=== PATIENT | male | born 1965 | race Caucasian/White ===

== ENCOUNTER 2024-03-20 04:52 | Emergency (ER) | payer BC, SELFPAY ==
[2024-03-20 04:54] VITALS: BP 140/77
--- NOTE | 2024-03-20 05:42 | ED.MUSCINJ ---
Addendum entered and electronically signed by Mercy Irizarry NP 03/20/24 08:34:
Pt notified of minimal right lung pneumothorax. He will f/u w PCP for repeat CXR in a week, Return instructions discusses, states 'I've had a collapsed lung before, I know what to do.'
Original Note:
HPI-Injury
General
Chief Complaint: Musculo-Skeletal Complaint
Source: patient
Exam Limitations: none
Time Seen by Provider: 03/20/24 05:31
Nursing documentation reviewed up to this point in time: agreed with
History of Present Illness-Injury
Initial Injury comments:
Patient presents today w/ R rib pain x 1 day. Reports pain started yesterday after fall onto R side while playing soccer. He did not notice pain immediately but after game finished. Reports he did not hear any sounds at time of injury but noticed
clicking last night. Pain is present on lateral R ribcage and radiates to back. Reports pain is 2/10 currently but 9/10 w/ movement. States he is unable to lay on R side or breath deeply due to pain. Denies any bruising or swelling. Denies
hemoptysis, cough, or SOB. Deies any hx of chest injuries or lung disorders.
Past History
Past History
ED Past Medical History: None
ED Past Surgical History: Orthopedic
Social History
Tobacco: Non-smoker
Personal:
Living: with family
Employment: Employed
Review of Systems
Review of Systems
Constitutional: Denies fever, fatigue or chills
Respiratory: Denies cough, hemoptysis or trouble breathing
Cardiac: Reports chest pain
ABD/GI: Reports no symptoms
: Reports no symptoms
Neurological: Denies dizzy, headache or weakness
Phy Exam
General Physical Exam
General Presentation: well appearing and no apparent distress
General age: appears stated age
General Habitus: normal
General Mental: alert
Cardiovascular Exam
Cardiovascular Exam: regular rate/rhythm, no edema, no gallop and no murmur
Pulmonary Exam
Pulmonary Exam: lungs clear, no respiratory distress, no rales, no crackles, no rhonchi and no wheezing
Musculoskeletal Exam
Musculoskeletal Exam: other (no tenderness to palpation of R ribs. No bruising or swelling. )
Injury Course
Orders/Labs/Results
Orders:
Orders
03/20/24 05:01
CR Ribs-right 3 Vw W/pa Chest* Urgent
Comment:
Reason For Exam: fall
03/20/24 05:48
Incentive Spirometry [Rx Incentive Spirometry] [RESP] Urgent
Frequency: q1h while awake
MDM/Problems Addressed
Differential Diagnosis Includes:
rib fx, costochondritis
*Critical Care Note
Total Time (30-74mins, 75-104mins- exclusive of procedures): Not Applicable
ED Attending Note
-
Portions of this chart may have been created with voice recognition software.� Occasional wrong word or��sound alike� substitutions may have occurred due to the inherent limitations of voice recognition software.
Discharge Plan
Departure
Patient Disposition: Home (Routine Discharge)
Date of Disposition: 03/20/24
Time of Disposition: 06:15
Patient with high blood pressure during this ER visit?: Yes
Discharge Problem:
Closed rib fracture
Instructions: How to Use an Incentive Spirometer, Rib Fracture or Bruised Rib ED, BLOOD PRESSURE
Prescriptions:
New
diclofenac sodium 75 mg tablet,delayed release (DR/EC)
75 mg PO BID Qty: 10 0RF
No Action
No Current Medications
metronidazole 500 MG tablet
500 mg PO TID Qty: 30 0RF
hydrocodone-acetaminophen [Vicodin] 1 EACH tablet
1 ea PO Q6HPRN PRN (Reason: pain) Qty: 10 0RF
levofloxacin 500 MG tablet
500 mg PO DAILY 10 Days 0RF
Referrals:
[place], [employer] [Family Provider] -
Activity Restrictions/Additional Instructions:
It was a pleasure meeting you and taking part in your care. We hope for your continued healing and wellness.
Please read discharge instructions in their entirety. However, they are for general education and may not describe your exact diagnosis at discharge. Information on your ER visit and medical conditions were discussed with you along with appropriate
follow up information...
If indicated, please take your medications as instructed and indicated on discharge paperwork.
Please schedule a follow up appointment as directed. Call to schedule an appointment
Please return to the emergency department with ANY change in, persisting, or worsening of symptoms. If any of your symptoms do not improve, or persist, or become more severe within 6-12 hours, please return to the emergency department for further
care.
Please return to the emergency department if you develop a headache, neck pain/stiffness, fever greater than 100.4F, chest pain, shortness of breath, persistent nausea, vomiting, slurred speech, difficulty walking, numbness/tingling, weakness, signs
of infection or any other symptoms that are worrisome to you.
If you have any questions or concerns please do not hesitate to call the Hospital at or E-mail me directly at [email or web address]
Interventions
Interventions:
*Risk Screen - Suicide Last Done: 03/20/24 04:54
*General Assessment Last Done: 03/20/24 04:54
*Neglect/Abuse Screening Last Done: 03/20/24 04:54
ED- Fall Risk Assessment Last Done: 03/20/24 04:54
*ED COVID-19 Vaccine History Last Done: 03/20/24 04:54
*Nursing Disposition Last Done: 03/20/24 06:28
ED-Musculoskeletal Assessment Last Done: 03/20/24 05:21
Discharge Date and Time
Discharge Date/Time: 03/20/24 06:29
Print Language: BENINESE
== END 2024-03-20 06:29 | disposition home or self-care (01) ==
LOC: EMR 04:52
PROVIDERS: EMERGENCY PHYSICIAN Student in an Organized Health Care Education/Training Program; FAMILY PHYSICIAN Internal Medicine
DX: S22.31XA Fracture of one rib, right side, initial encounter for closed fracture (principal); W19.XXXA Unspecified fall, initial encounter; Y93.66 Activity, soccer
CPT/HCPCS: 99283; 71101